=== PATIENT | male | born 1965 | race African-American/Black ===

== ENCOUNTER 2023-05-26 13:59 | Emergency (ER) | payer MEDICAID ==
[~2023-05-26] VITALS: Ht 177.8 cm; Wt 91.0 kg
[2023-05-26 14:02] VITALS: TEMP 98.3; O2SAT 100
[2023-05-26] MEDS ORDERED: BACITRACIN ZINC OINT UDPKT TOP NR (17:00)
[2023-05-26] MEDS ORDERED: BACITRACIN ZINC OINT UDPKT TOP ONE (17:00)
[2023-05-26] MEDS ORDERED: LIDOCAINE HCL/EPINEPHRINE 1%-EPI 1:100,000 20 ML VIAL INFIL ONE (17:00)
[2023-05-26] MEDS ORDERED: TETANUS, DIPHTHERIA, PERTUSSIS VAC/PF 0.5ML (>10YR OLD) IM ONE (17:00)
[2023-05-26 20:55] VITALS: BP 168/96; PULSE 89; RESP 16
[2023-05-26] MEDS: KETOROLAC 60MG/2ML VIAL IM STA (20:55)
[2023-05-26] MEDS: HYDROCODONE/ACETAMINOPHEN 5/325MG TABLET PO STA (20:55)
[2023-05-26] MEDS ORDERED: LIDOCAINE HCL 1% 10 MG/ML 10ML VIAL INJ NR ×2 (21:15)
[2023-05-26] MEDS: TETANUS, DIPHTHERIA, PERTUSSIS VAC/PF 0.5ML (>10YR OLD) IM ONE (22:17)
[2023-05-26] MEDS ORDERED: CEPH500C2 MT (23:28)
[2023-05-26] MEDS ORDERED: HYDR-4001 MT (23:28)
[2023-05-27] MEDS: CEPHALEXIN 250MG CAPSULE PO NR (00:29)
== END 2023-05-27 01:23 | disposition home or self-care (01) ==
LOC: ER 13:59
DX: S81.811A Laceration without foreign body, right lower leg, initial encounter (principal); I10 Essential (primary) hypertension; X58.XXXA Exposure to other specified factors, initial encounter; Y93.89 Activity, other specified; Y92.89 Other specified places as the place of occurrence of the external cause; Y99.8 Other external cause status
CPT/HCPCS: 73590; 90715; 12002; 90471; 96372; 99284; J1885; J3490